=== PATIENT | female | born 1985 | race African-American/Black ===

== ENCOUNTER 2019-12-20 06:48 | Emergency (ER) | payer MEDICAID | END 2019-12-20 07:50 | disposition left against medical advice (07) | LOC: EDH 06:48 | DX: N60.01 Solitary cyst of right breast (principal); F41.9 Anxiety disorder, unspecified; F43.10 Post-traumatic stress disorder, unspecified | CPT/HCPCS: 99281 ==

== ENCOUNTER 2019-12-24 05:07 | Emergency (ER) | payer MEDICAID, OTHER ==
[2019-12-24 05:39] LABS: APPEARANCE,URINE Clear (CLEAR); BILIRUBIN,URINE Negative (NEGATIVE); COLOR,URINE Yellow (YELLOW); GLUCOSE, URINE (UA) Negative (NEGATIVE); KETONES,URINE Negative (NEGATIVE); LEUKOCYTE ESTERASE ,URINE Negative (NEGATIVE); NITRATE,URINE Negative (NEGATIVE); OCCULT BLOOD,URINE Negative (NEGATIVE); PH,URINE 7.5 (5.0-8.0); PROTEIN,URINE Negative (NEGATIVE)
[2019-12-24 05:40] LABS: HCG,QUAL RESULT POSITIVE (NEGATIVE)
== END 2019-12-24 05:57 | disposition home or self-care (01) ==
LOC: EDH 05:07
DX: Z32.01 Encounter for pregnancy test, result positive (principal); F41.9 Anxiety disorder, unspecified; Z72.0 Tobacco use
CPT/HCPCS: 81003; 81025